=== PATIENT | male | born 1990 | race Caucasian/White ===

== ENCOUNTER → 2016-07-07 | Outpatient (CLI) | payer BC ==
[2016-07-07 13:36] LABS: HEMATOCRIT 45.1 % (42-52); MEAN CELL VOLUME 87.7 fL (80-100); MEAN CORPUSCULAR HEMOGLOBIN 30.4 pg (25-34); MEAN CORPUSCULAR HGB CONC 34.6 g/dl (32-36); MEAN PLATELET VOLUME 11.2 fL (7.4-10.4); PLATELET COUNT 189 K/uL (130-400); RED BLOOD COUNT 5.14 M/uL (4.7-6.1); WHITE BLOOD COUNT 3.61 K/uL (4.8-10.8)
[2016-07-07 13:41] LABS: CHOLESTEROL/HDL RATIO 3.3
[2016-07-07 14:00] LABS: BASO % 0.6 %; BASO ABS # 0.02 K/uL (0-0.2); COMPLETE YES; LYMPH % 50.4 %; LYMPH ABS # 1.82 K/uL (1.2-3.4); MONO % 9.4 %; NEUT % 36.6 %
== END | disposition home or self-care (01) ==
LOC: C.LABBC 09:48
PROVIDERS: ATTEND Family Medicine
DX: Z00.00 Encounter for general adult medical examination without abnormal findings (principal)